=== PATIENT | female | born 1940 | race Caucasian/White ===

== ENCOUNTER 2024-03-19 11:04 | Outpatient (CLI) | payer BC | END 2024-03-19 11:05 | disposition home or self-care (01) | LOC: CSHRAD 11:04 | PROVIDERS: ATTEND Nurse Practitioner | DX: M54.50 Low back pain, unspecified (principal); M48.56XA Collapsed vertebra, not elsewhere classified, lumbar region, initial encounter for fracture; M43.17 Spondylolisthesis, lumbosacral region; M47.816 Spondylosis without myelopathy or radiculopathy, lumbar region | CPT/HCPCS: 72100 ==